=== PATIENT | female | born 1960 | race Caucasian/White ===

== ENCOUNTER → 2023-05-31 10:32 | Outpatient (REF) | payer OTHER, SELFPAY | LOC: RAD 10:32 | PROVIDERS: ATTENDING PHYSICIAN Family Medicine | DX: Z13.820 Encounter for screening for osteoporosis (principal) | CPT/HCPCS: 77080 ==

== ENCOUNTER → 2023-07-07 08:38 | Outpatient (REF) | payer OTHER, SELFPAY | LOC: RCS 08:38 | PROVIDERS: ATTENDING PHYSICIAN Family Medicine; FAMILY PHYSICIAN Family Medicine | DX: R00.2 Palpitations (principal); R42 Dizziness and giddiness; R68.89 Other general symptoms and signs | CPT/HCPCS: 93225; 93226 ==

== ENCOUNTER → 2023-08-05 13:46 | Outpatient (REF) | payer OTHER, SELFPAY | LOC: DHCBS MAIN 13:46 | PROVIDERS: ATTENDING PHYSICIAN Internal Medicine Cardiovascular Disease; FAMILY PHYSICIAN Family Medicine | DX: R07.89 Other chest pain (principal) | CPT/HCPCS: 93306 ==

== ENCOUNTER → 2023-09-30 09:51 | Outpatient (REF) | payer OTHER, SELFPAY | LOC: RCS 09:51 | PROVIDERS: ATTENDING PHYSICIAN Internal Medicine Cardiovascular Disease; FAMILY PHYSICIAN Family Medicine | DX: I10 Essential (primary) hypertension (principal) | CPT/HCPCS: 93017; 93350 ==

== ENCOUNTER → 2024-06-12 19:33 | Outpatient (REF) | payer MEDICARE, OTHER, SELFPAY | LOC: WDC 19:33 | PROVIDERS: ATTENDING PHYSICIAN Family Medicine | DX: Z12.31 Encounter for screening mammogram for malignant neoplasm of breast (principal) | CPT/HCPCS: 77063; 77067 ==

== ENCOUNTER 2024-07-16 10:59 | Outpatient (RCR) | payer MEDICARE, OTHER, SELFPAY | END 2024-07-16 23:59 | disposition home or self-care (01) | LOC: RPT 10:59 | PROVIDERS: ATTENDING PHYSICIAN Family Medicine | DX: M54.42 Lumbago with sciatica, left side (principal); M51.17 Intervertebral disc disorders with radiculopathy, lumbosacral region; Z73.6 Limitation of activities due to disability | CPT/HCPCS: 97010; 97110; 97140; 97162 ==

== ENCOUNTER 2024-07-27 11:00 | Outpatient (RCR) | payer MEDICARE, OTHER, SELFPAY | END 2024-08-01 13:20 | disposition home or self-care (01) | LOC: RPT 11:00 | PROVIDERS: ATTENDING PHYSICIAN Family Medicine | DX: M54.42 Lumbago with sciatica, left side (principal); M51.17 Intervertebral disc disorders with radiculopathy, lumbosacral region (principal); Z73.6 Limitation of activities due to disability; G89.29 Other chronic pain | CPT/HCPCS: 97010; 97110; 97140 ==

== ENCOUNTER → 2024-08-26 07:02 | Outpatient (REF) | payer MEDICARE, OTHER, SELFPAY | LOC: PAVMRI 07:02 | PROVIDERS: ATTENDING PHYSICIAN Family Medicine | DX: M54.50 Low back pain, unspecified (principal); M54.16 Radiculopathy, lumbar region | CPT/HCPCS: 72148 ==